=== PATIENT | female | born 1955 | race Caucasian/White ===

== ENCOUNTER 2018-08-22 07:43 | Emergency (ER) | payer OTHER ==
[~2018-08-22] VITALS: Ht 157.5 cm; Wt 78.0 kg
[2018-08-22] MEDS ORDERED: FIORICET (08:18)
[2018-08-22] MEDS ORDERED: INDOCIN50 MG (08:19)
== END 2018-08-22 09:52 | disposition home or self-care (01) ==
LOC: ER 07:43
DX: M62.838 Other muscle spasm (principal)

== ENCOUNTER 2019-05-11 07:02 | Emergency (ER) | payer OTHER ==
[~2019-05-11] VITALS: Ht 157.5 cm; Wt 78.9 kg
[~2019-05-11 07:02] MED LIST: FIORICET; INDOCIN50 MG
== END 2019-05-11 10:16 | disposition home or self-care (01) ==
LOC: ER 07:02
DX: S40.011A Contusion of right shoulder, initial encounter (principal); S60.221A Contusion of right hand, initial encounter; W18.39XA Other fall on same level, initial encounter; Y93.89 Activity, other specified; Y92.89 Other specified places as the place of occurrence of the external cause; Y99.8 Other external cause status

== ENCOUNTER 2019-05-13 09:38 | Emergency (ER) | payer OTHER ==
[~2019-05-13] VITALS: Ht 157.5 cm; Wt 78.9 kg
== END 2019-05-13 11:38 | disposition home or self-care (01) ==
LOC: ER 09:38
DX: M65.849 Other synovitis and tenosynovitis, unspecified hand (principal)

== ENCOUNTER 2019-09-14 07:49 | Outpatient (CLI) | payer OTHER | END 2019-09-14 07:56 | disposition home or self-care (01) | LOC: RAD 07:49 | DX: M54.5 Low back pain (principal); M25.561 Pain in right knee ==

== ENCOUNTER → 2019-11-16 | Outpatient (CLI) | payer OTHER | END | disposition home or self-care (01) | LOC: MRI 10:27 → RAD 10:27 → MRI 10:45 | DX: M75.101 Unspecified rotator cuff tear or rupture of right shoulder, not specified as traumatic (principal); M54.12 Radiculopathy, cervical region; M54.2 Cervicalgia | CPT/HCPCS: 73218 ==

== ENCOUNTER 2019-11-30 11:04 | Outpatient (CLI) | payer OTHER | END 2019-11-30 12:52 | disposition home or self-care (01) | LOC: MRI 11:04 → RAD 11:04 → MRI 12:52 | DX: M17.11 Unilateral primary osteoarthritis, right knee (principal); S83.241A Other tear of medial meniscus, current injury, right knee, initial encounter | CPT/HCPCS: 73718 ==

== ENCOUNTER 2020-04-16 12:30 | Emergency (ER) | payer OTHER ==
[~2020-04-16] VITALS: Ht 157.5 cm; Wt 80.7 kg
== END 2020-04-16 13:57 | disposition home or self-care (01) ==
LOC: ER 12:30
DX: M25.511 Pain in right shoulder (principal)

== ENCOUNTER 2020-05-02 06:51 | Emergency (ER) | payer OTHER ==
[~2020-05-02] VITALS: Ht 157.5 cm; Wt 82.6 kg
[2020-05-02] MEDS ORDERED: [UNRECOGNIZED DRUG - OTHER] (07:09)
== END 2020-05-02 12:27 | disposition home or self-care (01) ==
LOC: ER 06:51
DX: R42 Dizziness and giddiness (principal); Z03.818 Encounter for observation for suspected exposure to other biological agents ruled out

== ENCOUNTER 2021-04-25 07:50 | Emergency (ER) | payer OTHER ==
[~2021-04-25] VITALS: Ht 157.5 cm; Wt 79.8 kg
[~2021-04-25 07:50] MED LIST changes: +[UNRECOGNIZED DRUG - OTHER]
== END 2021-04-25 14:53 | disposition home or self-care (01) ==
LOC: ER 07:50
DX: M54.2 Cervicalgia (principal); M25.512 Pain in left shoulder; M25.511 Pain in right shoulder

== ENCOUNTER → 2021-05-15 11:34 | Outpatient (CLI) | payer OTHER | END | disposition home or self-care (01) | LOC: LAB 11:34 | PROVIDERS: ATTEND Orthopaedic Surgery | DX: D64.89 Other specified anemias (principal); E88.89 Other specified metabolic disorders; D68.8 Other specified coagulation defects; N39.0 Urinary tract infection, site not specified; Z22.322 Carrier or suspected carrier of Methicillin resistant Staphylococcus aureus; E55.9 Vitamin D deficiency, unspecified ==

== ENCOUNTER 2021-05-16 11:24 | Outpatient (CLI) | payer OTHER | END 2021-05-16 15:00 | disposition home or self-care (01) | LOC: LAB 11:24 → EKG 11:24 → LAB 15:00 | PROVIDERS: ATTEND Orthopaedic Surgery | DX: I49.8 Other specified cardiac arrhythmias (principal); I10 Essential (primary) hypertension ==

== ENCOUNTER 2021-05-18 14:27 | Outpatient (CLI) | payer OTHER | END 2021-05-18 14:49 | disposition home or self-care (01) | LOC: TOM 14:27 | PROVIDERS: ATTEND Orthopaedic Surgery | DX: M87.011 Idiopathic aseptic necrosis of right shoulder (principal) ==

== ENCOUNTER → 2021-08-27 08:00 | Outpatient (CLI) | payer OTHER | END | disposition home or self-care (01) | LOC: LAB 08:00 | PROVIDERS: ATTEND Orthopaedic Surgery | DX: D64.89 Other specified anemias (principal); E88.89 Other specified metabolic disorders; D68.8 Other specified coagulation defects; N39.0 Urinary tract infection, site not specified; Z22.322 Carrier or suspected carrier of Methicillin resistant Staphylococcus aureus; Z76.89 Persons encountering health services in other specified circumstances; I10 Essential (primary) hypertension; I49.8 Other specified cardiac arrhythmias ==

== ENCOUNTER 2021-08-28 13:01 | Inpatient (IN) | payer OTHER ==
[~2021-08-28] VITALS: Ht 157.5 cm; Wt 80.7 kg
== END 2021-09-11 13:19 | disposition home or self-care (01) | DRG 502 ==
LOC: O/R 09-10 07:16 → SURH 09-10 08:00 → SURG 09-10 16:20
PROVIDERS: ADMIT Orthopaedic Surgery; ATTEND Orthopaedic Surgery
PROC: 0LS30ZZ Reposition Right Upper Arm Tendon, Open Approach (ICD-10-PCS; 2021-09-10)
PROC: 0PB90ZZ Excision of Right Clavicle, Open Approach (ICD-10-PCS; 2021-09-10)
PROC: 3E0F7SF Introduction of Other Gas into Respiratory Tract, Via Natural or Artificial Opening (ICD-10-PCS; 2021-09-10)
PROC: 0RNJ0ZZ Release Right Shoulder Joint, Open Approach (ICD-10-PCS; principal; 2021-09-10 08:00)
DX: M75.101 Unspecified rotator cuff tear or rupture of right shoulder, not specified as traumatic (principal); M75.21 Bicipital tendinitis, right shoulder; M19.011 Primary osteoarthritis, right shoulder

== ENCOUNTER 2021-10-30 10:58 | Outpatient (CLI) | payer OTHER | END 2021-10-30 11:06 | disposition home or self-care (01) | LOC: RAD 10:58 | PROVIDERS: ATTEND Specialist | DX: M25.511 Pain in right shoulder (principal) ==

== ENCOUNTER 2021-12-21 11:23 | Outpatient (CLI) | payer OTHER | END 2021-12-21 11:37 | disposition home or self-care (01) | LOC: RAD 11:23 | PROVIDERS: ATTEND Physical Medicine & Rehabilitation | DX: M17.11 Unilateral primary osteoarthritis, right knee (principal) ==

== ENCOUNTER 2022-01-17 10:01 | Emergency (ER) | payer OTHER ==
[~2022-01-17] VITALS: Ht 149.9 cm; Wt 82.6 kg
== END 2022-01-17 20:25 | disposition home or self-care (01) ==
LOC: ER 10:01
DX: M96.89 Other intraoperative and postprocedural complications and disorders of the musculoskeletal system (principal); M87.3 Other secondary osteonecrosis; M54.50 Low back pain, unspecified; Z96.619 Presence of unspecified artificial shoulder joint

== ENCOUNTER 2022-03-18 10:35 | Emergency (ER) | payer OTHER ==
[~2022-03-18] VITALS: Ht 157.5 cm; Wt 88.5 kg
[2022-03-18] MEDS ORDERED: MECLIZINE HCL25 MG PO (13:52)
[2022-03-18] MEDS ORDERED: ZITHROMAX TRI-500 MG PO (13:52)
== END 2022-03-18 14:01 | disposition home or self-care (01) ==
LOC: ER 10:35
DX: R42 Dizziness and giddiness (principal); R51.9 Headache, unspecified; Z20.822 Contact with and (suspected) exposure to COVID-19

== ENCOUNTER → 2022-03-29 | Outpatient (CLI) | payer OTHER ==
[~2022-03-29] MED LIST changes: +MECLIZINE HCL25 MG PO; +ZITHROMAX TRI-500 MG PO
== END | disposition home or self-care (01) ==
LOC: RAD 08:03
DX: M17.0 Bilateral primary osteoarthritis of knee (principal)

== ENCOUNTER 2022-04-18 08:25 | Outpatient (CLI) | payer OTHER | END 2022-04-18 08:31 | disposition home or self-care (01) | LOC: RAD 08:25 | PROVIDERS: ATTEND Orthopaedic Surgery | DX: M24.511 Contracture, right shoulder (principal) ==

== ENCOUNTER 2022-07-25 09:53 | Outpatient (CLI) | payer OTHER | END 2022-07-25 10:01 | disposition home or self-care (01) | LOC: RAD 09:53 | PROVIDERS: ATTEND Orthopaedic Surgery | DX: M25.561 Pain in right knee (principal) ==

== ENCOUNTER 2022-12-20 08:23 | Emergency (ER) | payer OTHER ==
[~2022-12-20] VITALS: Ht 149.9 cm; Wt 95.3 kg
== END 2022-12-20 09:38 | disposition home or self-care (01) ==
LOC: ER 08:23
DX: J03.80 Acute tonsillitis due to other specified organisms (principal)

== ENCOUNTER → 2023-01-14 09:04 | Outpatient (CLI) | payer OTHER ==
[~2023-01-14] VITALS: Ht 144.8 cm; Wt 93.0 kg
== END | disposition home or self-care (01) ==
LOC: LAB 09:04
PROVIDERS: ATTEND Orthopaedic Surgery
DX: D64.9 Anemia, unspecified (principal); E88.9 Metabolic disorder, unspecified; D68.8 Other specified coagulation defects; N39.0 Urinary tract infection, site not specified; E11.9 Type 2 diabetes mellitus without complications; Z76.89 Persons encountering health services in other specified circumstances; I10 Essential (primary) hypertension

== ENCOUNTER 2023-02-10 08:08 | Outpatient (CLI) | payer OTHER | END 2023-02-10 08:09 | disposition home or self-care (01) | LOC: LAB 08:08 | PROVIDERS: ATTEND Orthopaedic Surgery | DX: D72.818 Other decreased white blood cell count (principal); D64.89 Other specified anemias ==

== ENCOUNTER 2023-02-11 10:17 | Outpatient (CLI) | payer OTHER | END 2023-02-11 10:25 | disposition home or self-care (01) | LOC: TOM 10:17 | PROVIDERS: ATTEND Orthopaedic Surgery | DX: M19.012 Primary osteoarthritis, left shoulder (principal); M87.012 Idiopathic aseptic necrosis of left shoulder ==

== ENCOUNTER 2023-03-17 10:49 | Outpatient (CLI) | payer OTHER | END 2023-03-17 10:55 | disposition home or self-care (01) | LOC: RAD 10:49 | DX: M99.01 Segmental and somatic dysfunction of cervical region (principal); M99.02 Segmental and somatic dysfunction of thoracic region; M99.03 Segmental and somatic dysfunction of lumbar region; M25.561 Pain in right knee ==

== ENCOUNTER 2023-03-31 08:27 | Emergency (ER) | payer OTHER ==
[~2023-03-31] VITALS: Ht 149.9 cm; Wt 95.3 kg
== END 2023-03-31 10:41 | disposition home or self-care (01) ==
LOC: ER 08:27
DX: J06.9 Acute upper respiratory infection, unspecified (principal); Z20.822 Contact with and (suspected) exposure to COVID-19

== ENCOUNTER 2023-06-30 08:12 | Outpatient (CLI) | payer OTHER | END 2023-06-30 08:15 | disposition home or self-care (01) | LOC: LAB 08:12 | PROVIDERS: ATTEND Orthopaedic Surgery | DX: D64.9 Anemia, unspecified (principal); E88.9 Metabolic disorder, unspecified; N39.0 Urinary tract infection, site not specified; D68.8 Other specified coagulation defects; B95.62 Methicillin resistant Staphylococcus aureus infection as the cause of diseases classified elsewhere; E11.9 Type 2 diabetes mellitus without complications; I10 Essential (primary) hypertension; Z76.89 Persons encountering health services in other specified circumstances ==

== ENCOUNTER 2023-07-18 10:44 | Outpatient (CLI) | payer OTHER | END 2023-07-18 10:45 | disposition home or self-care (01) | LOC: LAB 10:44 | PROVIDERS: ATTEND Orthopaedic Surgery | DX: U07.1 COVID-19 (principal) ==

== ENCOUNTER 2023-08-28 08:06 | Outpatient (CLI) | payer OTHER ==
[~2023-08-28 08:06] MED LIST changes: +AMLODIPINE BESY10 MG; +ATORVASTATIN CA20 MG; +HYDROCHLOROTH12.5 MG; +LOSARTAN POTASS50 MG; +OMEPRAZOLE20 MG; +SULINDAC200 MG; +XARELTO10 M1
== END 2023-08-28 08:15 | disposition home or self-care (01) ==
LOC: RAD 08:06
PROVIDERS: ATTEND Orthopaedic Surgery
DX: Z96.612 Presence of left artificial shoulder joint (principal)

== ENCOUNTER 2023-11-11 10:09 | Outpatient (CLI) | payer OTHER | END 2023-11-11 10:20 | disposition home or self-care (01) | LOC: RAD 10:09 | PROVIDERS: ATTEND Orthopaedic Surgery | DX: Z96.612 Presence of left artificial shoulder joint (principal); M25.512 Pain in left shoulder ==

== ENCOUNTER 2023-11-15 08:04 | Emergency (ER) | payer OTHER ==
[~2023-11-15] VITALS: Ht 152.4 cm; Wt 90.7 kg
[2023-11-15 10:17] LABS: HEMATOCRIT 33.6 % (36.0-45.00); HEMOGLOBIN 10.8 g/dL (12.0-15.00); MEAN CELL VOLUME 80.3 fL (80.00-100.00); MEAN CORPUSCULAR HEMOGLOBIN 25.9 pg (27.00-32.0); MEAN CORPUSCULAR HGB CONC 32.2 g/dl (32.0-36.0); PLATELET COUNT 185 K/uL (150-450); RED BLOOD COUNT 4.19 M/uL (4.00-6.00)
== END 2023-11-15 12:44 | disposition home or self-care (01) ==
LOC: ER 08:05
PROVIDERS: General Practice
DX: U07.1 COVID-19 (principal); I10 Essential (primary) hypertension

== ENCOUNTER 2024-05-27 07:13 | Emergency (ER) | payer OTHER ==
[~2024-05-27] VITALS: Ht 144.8 cm; Wt 95.3 kg
[~2024-05-27 07:13] MED LIST changes: +ATORVASTATIN CA10 MG; +TRAMADOL HCL50 MG PO
[2024-05-27] MEDS ORDERED: TRAMADOL HCL 50 MG TABLET PO STA (08:38)
[2024-05-27] MEDS ORDERED: TRAM1TAB98 PO (08:40)
[2024-05-27] MEDS ORDERED: KETOROLAC TROMETHAMINE 10 MG TABLET PO ONE (08:55)
== END 2024-05-27 09:01 | disposition home or self-care (01) ==
LOC: ER 07:14
DX: M25.519 Pain in unspecified shoulder (principal); M25.512 Pain in left shoulder

== ENCOUNTER 2024-07-21 08:32 | Outpatient (CLI) | payer OTHER ==
[~2024-07-21 08:32] MED LIST changes: +TRAM1TAB98 PO
== END 2024-07-21 08:36 | disposition home or self-care (01) ==
LOC: RAD 08:32
DX: M17.11 Unilateral primary osteoarthritis, right knee (principal)

== ENCOUNTER 2024-10-25 07:37 | Emergency (ER) | payer OTHER ==
[~2024-10-25] VITALS: Ht 142.2 cm; Wt 95.3 kg
[2024-10-25] MEDS ORDERED: COZAAR25 MG (07:47)
[2024-10-25] MEDS ORDERED: KETOROLAC TROMETHAMINE 30 MG VIAL IM STA (08:37)
[2024-10-25] MEDS ORDERED: BUTALB/ACETAMINOPHEN/CAFFEINE 1 TAB TABLET PO STA (08:37)
[2024-10-25] MEDS ORDERED: BUTALB-ACETAMI1 EAC2 PO (09:49)
== END 2024-10-25 10:16 | disposition home or self-care (01) ==
LOC: ER 07:39
DX: R53.81 Other malaise (principal); G43.909 Migraine, unspecified, not intractable, without status migrainosus; I10 Essential (primary) hypertension
CPT/HCPCS: 96372; 99282; J1885

== ENCOUNTER 2024-11-19 09:30 | Outpatient (CLI) | payer OTHER ==
[~2024-11-19 09:30] MED LIST changes: +BUTALB-ACETAMI1 EAC2 PO; +COZAAR25 MG
== END 2024-11-19 09:32 | disposition home or self-care (01) ==
LOC: RAD 09:30
DX: R51.9 Headache, unspecified (principal)

== ENCOUNTER 2024-12-02 09:01 | Outpatient (CLI) | payer OTHER | END 2024-12-02 09:08 | disposition home or self-care (01) | LOC: RAD 09:01 | DX: M19.012 Primary osteoarthritis, left shoulder (principal) ==

== ENCOUNTER 2024-12-10 09:17 | Outpatient (CLI) | payer OTHER | END 2024-12-10 09:23 | disposition home or self-care (01) | LOC: RAD 09:17 | DX: M25.561 Pain in right knee (principal) ==

== ENCOUNTER 2024-12-29 09:00 | Outpatient (CLI) | payer OTHER | END 2024-12-29 09:03 | disposition home or self-care (01) | LOC: RAD 09:00 | PROVIDERS: ATTEND Orthopaedic Surgery | DX: M25.551 Pain in right hip (principal) ==

== ENCOUNTER 2025-02-07 08:27 | Outpatient (CLI) | payer OTHER | END 2025-02-07 08:30 | disposition home or self-care (01) | LOC: RAD 08:27 | DX: J31.1 Chronic nasopharyngitis (principal) ==

== ENCOUNTER → 2025-02-24 | Emergency (ER) | payer OTHER ==
[~2025-02-24] VITALS: Ht 152.4 cm; Wt 96.6 kg
[~2025-02-24] MED LIST changes: +ACETAMINOPHEN 500 MG GEL..CAP PO ONE; +AMOX1TAB5 PO; +BENZONATATE 100 MG CAPSULE PO ONE; +BENZONATATE200 M1 PO; +CHLORASEPTIC M1 EAC1 MM; +POLYMYXIN B/TMP10 ML OP; +ZYRTEC10 M3 PO
[2025-02-24 08:03] VITALS: BP 139/72; O2SAT 100
[2025-02-24 11:37] LABS: HEMATOCRIT 38.7 % (36.0-45.00); HEMOGLOBIN 13.2 g/dL (12.0-15.00); MEAN CELL VOLUME 93.3 fL (80.00-100.00); MEAN CORPUSCULAR HEMOGLOBIN 31.8 pg (27.00-32.0); MEAN CORPUSCULAR HGB CONC 34.1 g/dl (32.0-36.0); PLATELET COUNT 193 K/uL (150-450); RED BLOOD COUNT 4.14 M/uL (4.00-6.00); RED CELL DISTRIBUTION WIDTH 15.9 % (11.5-14.5)
[2025-02-24 11:53] LABS: COVID-19 AG NEGATIVE (NEGATIVE)
[2025-02-24 11:54] LABS: INFLUENZA A AG NEGATIVE (NEGATIVE)
[2025-02-24 11:57] LABS: ALBUMIN 3.3 gm/dL (3.4-5.0); BILIRUBIN TOTAL 0.58 mg/dL (0.3-1.2); CALCIUM 9.3 mg/dL (8.5-10.1); CREATININE SERUM 0.66 mg/dL (0.55-1.02); GFR 89.33; GLOBULINA 4.3 G/DL (2.4-3.5); POTASSIUM 4.6 mEq/L (3.5-5.1); TOTAL PROTEIN 7.6 gm/dL (6.4-8.2)
== END | disposition home or self-care (01) ==
LOC: ER 08:00
PROVIDERS: General Practice
DX: J02.9 Acute pharyngitis, unspecified (principal); J98.8 Other specified respiratory disorders; R53.81 Other malaise; Z20.822 Contact with and (suspected) exposure to COVID-19; I10 Essential (primary) hypertension

== ENCOUNTER 2025-03-18 09:21 | Outpatient (CLI) | payer OTHER ==
[~2025-03-18 09:21] MED LIST changes: -ACETAMINOPHEN 500 MG GEL..CAP PO ONE; -BENZONATATE 100 MG CAPSULE PO ONE
== END 2025-03-18 09:27 | disposition home or self-care (01) ==
LOC: RAD 09:21
DX: S42.232A 3-part fracture of surgical neck of left humerus, initial encounter for closed fracture (principal)

== ENCOUNTER 2025-06-28 08:33 | Emergency (ER) | payer OTHER ==
[~2025-06-28] VITALS: Ht 157.5 cm; Wt 95.3 kg
[2025-06-28] MEDS ORDERED: ANTIVERT25 M2 PO (08:44)
[2025-06-28] MEDS ORDERED: MECLIZINE HCL 25 MG TABLET PO ONE (09:00)
[2025-06-28 09:33] LABS: BASO % 0.5 % (0.1-1.2); EOS # 0.51 (0.04-0.54); EOS % 11.5 % (0.7-7.0); LYMPH # 1.57 (1.18-3.74); LYMPH % 35.4 % (19.3-53.1); MEAN PLATELET VOLUME 10.70 fl (9.4-12.4); MONO # 0.64 (0.24-0.82); NEUT # 1.69 (1.56-6.13); NEUT % 38.0 % (34.0-71.1); RED CELL DISTRIBUTION WIDTH 13.4 % (11.6-14.4)
[2025-06-28 09:59] LABS: BUN CREA RATIO 22.0 (7.0-25.0); CREATININE SERUM 0.59 mg/dL (0.55-1.02); GFR 101.36; GLUCOSE FASTING 101.0 mg/dL (65-100); OSMOLALITY SERUM 283.0 MOSM/KG (275-295)
[2025-06-28 10:02] LABS: MONO % 14.4 % (4.7-12.5)
[2025-06-28 10:07] LABS: URINE APPEARANCE Clear; URINE BILIRRUBIN Negative (NEGATIVE); URINE BLOOD Negative; URINE COLOR Yellow; URINE GLUCOSE Negative (NEGATIVE); URINE KETONE Negative (NEGATIVE); URINE LEUKOCYTE Negative; URINE NITRATE Negative; URINE PROTEIN Negative (NEGATIVE); URINE UROBILINOGEN 0.2 E.U./dl
[2025-06-28 10:08] LABS: URINE BACTERIA 14.3 uL (0.0-1933); URINE RBC 2.1 uL (0.0-20.8)
[2025-06-28 10:46] LABS: URINE CAST 0.00 uL (0.0-1.40); URINE EPITHELIAL CELLS 1.3 uL (0.0-38.8); URINE WBC 1.0 uL (0.0-23.2)
== END 2025-06-28 13:01 | disposition home or self-care (01) ==
LOC: ER 08:33
PROVIDERS: Emergency Medicine
DX: R42 Dizziness and giddiness (principal)

== ENCOUNTER 2025-07-26 17:30 | Outpatient (CLI) | payer OTHER ==
[~2025-07-26 17:30] MED LIST changes: +ANTIVERT25 M2 PO
== END 2025-07-26 17:33 | disposition home or self-care (01) ==
LOC: RAD 17:30
DX: M19.012 Primary osteoarthritis, left shoulder (principal)